=== PATIENT | female | born 1965 | race Caucasian/White ===

== ENCOUNTER → 2017-06-28 | Outpatient (CLI) | payer BC ==
[~2017-06-28] MED LIST: ASCA500 PO; ASTNS; BIOTCAP2; CALC12502 PO; CEFU500T16 PO; CHOLTAB3 PO; CLAR500T3 PO; CLARITHROMYCIN PO; CREON PO; FLNIN NAE; GLUC10007 PO; IMMUNE GLOBULIN; MUCINEX PO; MULTTAB58 PO; PRLSR20 PO; VITA100C4 PO; [UNRECOGNIZED DRUG - OTHER]; [UNRECOGNIZED DRUG - OTHER]; tumeric PO; vitamin B complex PO
== END | disposition home or self-care (01) ==
LOC: C.PAPS 14:09
PROVIDERS: ATTEND Obstetrics & Gynecology
DX: Z01.411 Encounter for gynecological examination (general) (routine) with abnormal findings (principal)

== ENCOUNTER → 2017-09-30 | Outpatient (CLI) | payer BC ==
[~2017-09-30] MED LIST changes: +CEFD300C2 PO; -CEFU500T16 PO; -CLAR500T3 PO; +CLAR500T38 PO; -CLARITHROMYCIN PO; -CREON PO; +HYDR-3126 PO; +HYDR25CA PO; +LORA-741 PO; +PRED20TA PO; +PSEU60TA80 PO
--- NOTE | 2017-09-30 08:32 | DIAGNOSTIC IMAGING REPORT ---
CT OF THE CHEST WITHOUT IV CONTRAST CLINICAL HISTORY: Chronic cough. History of breast cancer. COMPARISON STUDY: No previous studies for comparison. CT DOSE: 177.05 mGycm TECHNIQUE: Axial images of the chest were obtained without IV contrast. Images were reviewed in the axial, sagittal, and coronal planes. IV contrast was not administered for this examination. A dose lowering technique was utilized adhering to the principles of ALARA. FINDINGS: The patient is status post left mastectomy with placement of a breast implant. No enlarged axillary, mediastinal or hilar lymph nodes are present. There are postoperative within the left axilla. The size of the heart is normal. There is no pericardial effusion. There is no pneumothorax or pleural effusion. Note is made of moderate left lower lobe volume loss with groundglass opacity. Extensive bronchial wall thickening within the left lower lobe is noted with multifocal secretions throughout the bronchi possible mucoid impaction. Otherwise, the airways are patent. No suspicious osseous lesions are present. 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 Upper abdomen is unremarkable on this unenhanced exam. IMPRESSION: 1. Moderate left lower lobe volume loss with left lower lobe bronchial wall thickening, intraluminal secretions and possible mucoid impaction. These findings are age indeterminate but likely subacute to chronic and favor an infectious or inflammatory etiology. No central obstructing mass. 2. No evidence of metastatic disease within the chest. 3. Status post left mastectomy. 4. 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 Electronically signed by: Yfn Wilson M.D. 09/30/2017 8:31 AM Dictated Date/Time: 09/30/2017 8:16 AM
== END | disposition home or self-care (01) ==
LOC: C.CTS 07:45
PROVIDERS: ATTEND Physician Assistant
DX: R05 Cough (principal); R91.8 Other nonspecific abnormal finding of lung field; Z90.12 Acquired absence of left breast and nipple; M41.24 Other idiopathic scoliosis, thoracic region

== ENCOUNTER 2017-10-12 08:42 | Day surgery (SDC) | payer OTHER ==
--- NOTE | 2017-10-11 19:03 | History and Physical ---
History & Physical Date of Service Oct 11, 2017. 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 Current Occupation: teacher - [employer], denies occupation/industrial exposures Patient denies any h/o childhood asthma or allergies. She reports in general, her pulmonary history is unremarkable with exception of "pleurisy" in high school and pneumonia in graduates school. She states while in her mid-30s following the of her first son, she was diagnosed with immune deficiency. She follows with Dr. Jorge and is prescribed IVIG Q monthly. She reports prior h/o allergy testing was negative. She reports recurrent acute sinus infections and sinus symptoms. She reports prior h/o use of an antimicrobial sinus wash which was successful but unfortunately, no longer available. Her sinus infections/symptoms have been difficult to treat suppress and she has been referred to/seen by [facility]. Her sinus rinse was adjusted without significant improvement. She was offered sinus surgery but she declined. Patient reported that she has been "sick since January". She reports significant sinus pressure and drainage. Cough is described as harsh, wet, and "throaty". She reports intermittent wheeze. 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 She is currently prescribed Biaxin 500mg BID x 1-month. She reports intermittent bursts of prednisone without improvement. Trial of anti -reflux medication x 2-months did not offer any relief. Cough is not affected by temperature changes or PO intake. She denies change with supine position however does reports that she must sleep in a reclined position. Previously, she has been prescribed a trial of ProAir x 8-months for intermittent cough without palliation. More recently, she has been prescribed Flovent 110 2 puffs BID and is unsure if this has been palliative. She denies any fevers or chills. Denied any GI symptoms or associated dyspnea. Patient is originally from [place] and has lived in [place] with her , 2-sons , and dog for the past 10-years. She denies any mold.mildew in her home. She denies recent travel. ETOH: few drinks/week. She denies any family history of lung disease/lung CA. PFT 05/10/17: FVC: 3.05, FEV1: 2.65/108%, FEV1/FVC: 87%/109%, FEF 25-75%: 3.33/135 % Active Problems 1. Breast cancer 2. Diverticulitis of colon 3. Encounter for gynecological examination with abnormal finding 4. Genetic susceptibility to malignant neoplasm of breast 5. Genetic susceptibility to malignant neoplasm of ovary 6. Hypogammaglobulinemia 7. Menopausal symptoms Surgical History 1. History of Breast Surgery Mastectomy 2. History of Breast Surgery Reconstruction 3. History of Section Low Transverse 4. History of Oral Surgery Tooth Extraction 5. History of Partial Colectomy 6. History of Salpingo-oophorectomy Bilateral 7. History of Tubal Ligation Family History 1. Family history of Breast Cancer 2. Family history of Breast Cancer Social History Never smoker Current Meds 1. Astelin SOLN 2. Biaxin 500 MG TABS; TAKE 1 TABLET EVERY 12 HOURS DAILY 3. Bioflex TABS 4. Biotin CAPS 5. Calcium Plus Vitamin D CAPS 6. Flonase SUSP 7. Multi Vitamin/Minerals TABS 8. Turmeric Curcumin CAPS 9. Vitamin B Complex TABS 10. Vitamin C TABS 11. Vitamin E CAPS Allergies 1. Avelox TABS 2. Factive TABS 3. Penicillins 4. Septra TABS Vital Signs Blood Pressure: 118 / 74, RUE, Sitting Height: 5 ft 0.5 in Weight: 129 lb 2 oz BMI Calculated: 24.8 BSA Calculated: 1.56 O2 Saturation: 99, RA Respiration: 17 Temperature: 98.5 F Heart Rate: 85 Physical Exam Constitutional: Well developed, well nourished female. No acute distress. Head: + facial symmetry Eyes: EOMi, PERRLA, no conjunctival injection Neck: Trachea midline. No adenopathy or masses Respiratory: Non-labored respirations. Loose cough on exam. Bilateral coarse rales. No wheeze. No clubbing or cyanosis. Cardiovascular: RRR, no MRG. +2 radial pulses. <1s capillary refill. Abdomen: soft, active bowel sounds Integumentary: no rashes, or ecchymosis MSK/Extremities: Moving and developed symmetrically. No peripheral edema. No calf tenderness. Neurologic: A&O, data recall in-tact. Appropriate affect.
[~2017-10-12] VITALS: Ht 154.9 cm; Wt 57.8 kg
[~2017-10-12 08:42] MED LIST changes: -CEFD300C2 PO; -HYDR-3126 PO; -HYDR25CA PO; -LORA-741 PO; -PSEU60TA80 PO
[2017-10-12 08:57] VITALS: Ht 154.9 cm; Wt 57.8 kg
--- NOTE | 2017-10-12 09:44 | History & Physical Bridge Note ---
H&P Re-Evaluation Bridge Note: I have examined the patient, reviewed the History & Physical and in the interval since the performance of the History & Physical I have noted the following changes of clinical significance: No changes noted
--- NOTE | 2017-10-12 09:45 | Pre Sedation Assessment ---
Pre Sedation Assessment General Date of Sedation: Oct 12, 2017. Review Cardiovascular: regular rate, rhythm, no edema, no gallop, no JVD, no murmur, normal peripheral pulses Lungs: chest non-tender, lungs clear, + decreased breath sounds (LLL) Pre-Sedation Airway Assessment Smoking Status: Never Smoker Hx of Sleep Apnea: No Hx of difficult intubation: No Short Thick Neck: No Thyro-mental Distance: > 3 Finger Breadths Oral Cavity: Capped Teeth, WNL Mallampati Classification: Class II ASA Classification: Class II NPO Status Date of Last Intake of Fluids: Oct 11, 2017 Time of Last Intake of Fluids: 2329 Date of Last Intake of Solids: Oct 11, 2017 Time of Last Intake of Solids: 2329 Procedure Planning Contraindications for Sedation: None Current Medications Reviewed: Yes Notes The planned sedation has been discussed with the patient. Informed Consent was obtained. I have identified the patient, determined the appropriateness of sedation and have assessed the patient immediately prior to the procedure. All medicine(s) and interventions are by my order.
[2017-10-12] MEDS ORDERED: HYDR-3126 PO (09:52)
[2017-10-12] MEDS ORDERED: HYDR25CA PO (09:52)
[2017-10-12] MEDS ORDERED: LORA-741 PO (09:52)
[2017-10-12] MEDS ORDERED: PSEU60TA80 PO (09:52)
[2017-10-12] MEDS ORDERED: LIDOCAINE 4% INH SOLN 4 ML BTL NEB ONE (10:00)
[2017-10-12] MEDS ORDERED: LIDOCAINE VISCOUS 2% 100ML TOP ONE (10:12)
[2017-10-12] MEDS ORDERED: LIDOCAINE HCL 2% LOCAL 50ML VIAL INSTIL ONE (10:24)
--- NOTE | 2017-10-12 10:34 | Bronchoscopy Procedure Note ---
Bronchoscopy Procedure Note Procedure: Bronchoscopy, conscious sedation, bronchial lavage left lower lobe Consent: Obtained through the patient placed into the chart Pre-procedural diagnosis: Chronic cough Post-procedural diagnosis: Left lower lobe bronchiectasis Start time: 1014 End time: 1025 Total time: minutes Analgesia: 2% liquid lidocaine: Via nebulizer 4% gel lidocaine: Via right naris 2% liquid lidocaine: Via bronchoscopy Sedation: Versed IV: 3mg Fentanyl IV: 75 g Procedure: The Olympus video bronchoscope was used for this procedure and passed down through the right naris Right naris/posterior naris/posterior oropharynx: Notable erythema and cracking of the posterior oropharyngeal regions with cobblestoning Glottis: Anatomically within normal limits, notable mucous surrounding the epiglottis Vocal cords: Proper abduction and abduction, anatomically within normal limits Subglottis/trachea/Kiah: Anatomically within normal limits Right bronchial tree: Right mainstem bronchus: Anatomically normal but notably long approximately 4.5 cm in length Right upper lobe: Anatomically within normal limits Bronchus intermedius: No bronchus intermedius Right middle lobe: Anatomically within normal limits Right lower lobe: Anatomically within normal limits Findings: Abnormal right upper lobe anatomy Left bronchial tree: Left mainstem bronchus: Anatomically within normal limits Left upper lobe: Anatomically within normal limits Lingula: Anatomically within normal limits Left lower lobe: Anatomically within normal limits, diffuse mucous plugs obstructing the basal pyramid Findings: Mucous plugging of the basal pyramid Bronchial alveolar lavage: Left lower lobe EBL: None Complications: None Follow-up: ASU
--- NOTE | 2017-10-12 10:35 | Post Sedation Assessment ---
Post Sedation Assessment General Date of Sedation Oct 12, 2017. Vital Signs: Vital Signs Past 12 Hours Date Time Temp Pulse Resp B/P (MAP) Pulse Ox O2 Delivery O2 Flow Rate FiO2 10/12/17 10:25 90 20 125/83 100 Mask 8 10/12/17 10:20 75 20 119/72 100 Mask 8 10/12/17 10:15 81 20 110/67 100 Mask 8 10/12/17 10:10 83 20 121/76 100 Mask 8 10/12/17 10:05 79 20 117/77 100 Mask 8 Post Procedure Recovery Score Activity: (2) Moves 4 extremities * Respiration: (2) Deep breath/cough Circulation: (2) +/-20% PreAnes Value Consciousness: (2) Fully Awake Oxygen Saturation: (2) > 92% On Room Air Discharge Sedation Level of Care: Phase I Post Sedation Plan On clinical assessment, the patient appears to have tolerated the sedation without complications. Patient is recovering as anticipated. Patient will continue to be monitored by nursing and may be discharged when sedation discharge criteria are met per below protocol. Upon Completions of procedure and additional 15 minutes continue every 5 minute vital signs and the P.A.R. score; then discharge to a Phase I or Fast Track to Phase II per the following guidelines: * Discharge Patient to appropriate Phase II area if PAR is 8 or greater or return to pre- procedure baseline. The post - procedure orders will be as directed. * If PAR score is less than 8 or not return to pre-procedure baseline then patient will follow Phase I monitoring till PAR is reached for Phase II. The Phase I may be done in procedure room or may call to secure a Phase I area. * If naloxone or flumazenil are used for reversal, hold in Phase I for an additional 60 -120 minutes before discharge to Phase II. Please call the Sedation Physician to re-evaluate and complete post-note for discharge to Phase II area. Do NOT discharge from procedure sedation or Phase 1 until post- sedation evaluation note is complete by procedure /sedation MD Sedation Discharge Instructions to be given to the patient at discharge to home.
--- NOTE | 2017-10-12 10:37 | Discharge Instructions ---
Discharge Instructions Date of Service Oct 12, 2017. Admission Reason for Admission: Chronic Cough Discharge Discharge Diagnosis / Problem: chronic cough with associated left lower lobe bronchiectasis and abnormal a Discharge Goals Goal(s): Diagnostic testing Activity Recommendations Activity Limitations: resume your previous activity . Instructions / Follow-Up Instructions / Follow-Up Follow-up with a [facility] pulmonary division Current Hospital Diet Patient's current hospital diet: Discharge Diet Recommended Diet: Regular Diet Procedures Procedures Performed: Bronchoscopy, bronchial lavage of the left lower lobe and conscious sedation Pending Studies Studies pending at discharge: no Medical Emergencies . Who to Call and When: Medical Emergencies: If at any time you feel your situation is an emergency, please call 911 immediately. . Non-Emergent Contact Non-Emergency issues call your: [employer] . . "Provider Documentation" section prepared by Sabino Koch. . VTE Core Measure Inpt VTE Proph given/why not?: Treatment not indicated
[2017-10-12] MEDS ORDERED: MIDAZOLAM HCL 5 MG/ML 1 ML VIAL IV ONE (10:39)
[2017-10-12] MEDS ORDERED: FENTANYL CITRATE INJ 50 MCG/1 ML 2 ML VIAL IV ONE (10:39)
[2017-10-12 10:40] VITALS: BP 130/76; O2SAT 95
[2017-10-12 11:09] VITALS: BP 111/72; PULSE 71; O2SAT 97
[2017-10-12 11:42] VITALS: BP 108/68; PULSE 72; TEMP 37; O2SAT 98
[2017-10-12 12:10] VITALS: BP 114/71; PULSE 73; O2SAT 97
[2017-10-12 12:40] VITALS: BP 116/78; PULSE 77; O2SAT 96
== END 2017-10-12 13:05 | disposition home or self-care (01) ==
LOC: C.ACU 08:42
PROVIDERS: ATTEND Internal Medicine Critical Care Medicine
DX: J47.9 Bronchiectasis, uncomplicated (principal); Z85.3 Personal history of malignant neoplasm of breast; Z90.10 Acquired absence of unspecified breast and nipple; Z98.51 Tubal ligation status; Z90.722 Acquired absence of ovaries, bilateral; Z90.49 Acquired absence of other specified parts of digestive tract; Z98.818 Other dental procedure status; Z98.890 Other specified postprocedural states; Z88.0 Allergy status to penicillin

== ENCOUNTER → 2017-10-19 | Outpatient (CLI) | payer OTHER ==
[~2017-10-19] MED LIST changes: -CHOLTAB3 PO; -CLAR500T38 PO; +HYDR-3126 PO; +HYDR25CA PO; +LORA-741 PO; -PRED20TA PO; -PRLSR20 PO; +PSEU60TA80 PO; -[UNRECOGNIZED DRUG - OTHER]
[2017-10-19 19:47] LABS: INFLUENZA A PCR Neg for Influ A (NEG); INFLUENZA B PCR Neg for Influ B (NEG)
== END | disposition home or self-care (01) ==
LOC: C.LAB1850 16:32
PROVIDERS: ATTEND Physician Assistant
DX: R50.9 Fever, unspecified (principal)

== ENCOUNTER → 2017-12-16 | Outpatient (CLI) | payer OTHER ==
[~2017-12-16] MED LIST changes: -PSEU60TA80 PO
== END | disposition home or self-care (01) ==
LOC: C.LAB1850 14:01
PROVIDERS: ATTEND Physician Assistant
DX: J14 Pneumonia due to Hemophilus influenzae (principal)

== ENCOUNTER → 2018-01-03 | Outpatient (CLI) | payer OTHER ==
[~2018-01-03] MED LIST changes: +CEFD300C2 PO
--- NOTE | 2018-01-03 16:50 | ECHOCARDIOGRAM REPORT ---
*NOTICE TO RECEIVING [employer] AGENCY This information is strictly Confidential and protected under [place] law. [place] law prohibits you from making any further disclosure of this information unless further disclosure is expressly permitted by the written consent of the person to whom it pertains or is authorized by law. A general authorization for the release of medical or other information is not sufficient for this purpose. Hospital accepts no responsibility if the information is made available to any other person, INCLUDING THE PATIENT. Interpretation Summary * Name: LUIZ VIRAMONTES Study Date: 01/03/2018 12:52 PM BP: 139/74 mmHg * Patient Location: [facility] HR: 72 * : 1965 (M/d/yyyy) Gender: Female Height: 61 in * Age: 53 yrs Ethnicity: CA Weight: 128 lb * Ordering Physician: Sabino Koch * Referring Physician: Sabino Koch * Performed By: Yudelka Martinez RCS * * Reason For Study: Abnormal PFT * BSA: 1.6 m2 * -- Conclusions -- * Left ventricular systolic function is normal. * No regional wall motion abnormalities noted. * Ejection Fraction = 55-60%. * There is mild mitral regurgitation. Procedure Details * A complete two-dimensional transthoracic echocardiogram was performed (2D, M-mode, Doppler and color flow Doppler). Left Ventricle * The left ventricle is normal in size. * There is normal left ventricular wall thickness. * Left ventricular systolic function is normal. * Ejection Fraction = 55-60%. * No regional wall motion abnormalities noted. Right Ventricle * The right ventricle is normal size. * The right ventricular systolic function is normal as assessed by tricuspid annular plane systolic excursion (TAPSE) (normal >1.5 cm). Atria * The left atrial size is normal. * Right atrial size is normal. * No ASD detected; PFO is not assessed. Mitral Valve * The mitral valve anatomy is normal. * There is no mitral valve stenosis. * There is mild mitral regurgitation. Tricuspid Valve * The tricuspid valve anatomy is normal. * There is no tricuspid stenosis. * There is trace tricuspid regurgitation. * Right ventricular systolic pressure is normal. Aortic Valve * The aortic valve is trileaflet. * The aortic valve opens well. * No hemodynamically significant valvular aortic stenosis. * No aortic regurgitation is present. Pulmonic Valve * The pulmonary valve is not well seen, but the Doppler examination is normal without significant regurgitation or stenosis. Great Vessels * The aortic root is normal size. * The pulmonary is not well visualized. Pericardium/Pleural * There is no pericardial effusion. Great Vessels * Normal inferior vena cava size and collapsability with sniff indicates a normal right atrial pressure of 3 mmHg MMode 2D Measurements and Calculations IVSd 0.80 cm IVSs 1.2 cm LVIDd 4.6 cm LVIDs 2.9 cm LVPWd 0.83 cm LVPWs 1.2 cm IVS/LVPW 0.96 FS 36.8 % EDV(Teich) 97.9 ml ESV(Teich) 32.6 ml EF(Teich) 66.7 % EDV(cubed) 98.1 ml ESV(cubed) 24.7 ml EF(cubed) 74.8 % % IVS thick 50.0 % % LVPW thick 44.0 % LV mass(C)d 122.0 grams LV mass(C)dI 78.0 grams/m\S\2 LV mass(C)s 105.2 grams LV mass(C)sI 67.3 grams/m\S\2 SV(Teich) 65.3 ml SI(Teich) 41.8 ml/m\S\2 SV(cubed) 73.3 ml SI(cubed) 46.9 ml/m\S\2 Ao root diam 2.9 cm Ao root area 6.8 cm\S\2 ACS 1.4 cm LA dimension 3.4 cm asc Aorta Diam 2.7 cm LA/Ao 1.1 EDV(MOD-sp4) 62.0 ml ESV(MOD-sp4) 26.0 ml EF(MOD-sp4) 58.1 % EDV(MOD-sp2) 59.0 ml ESV(MOD-sp2) 20.0 ml EF(MOD-sp2) 66.1 % SV(MOD-sp4) 36.0 ml SI(MOD-sp4) 23.0 ml/m\S\2 SV(MOD-sp2) 39.0 ml SI(MOD-sp2) 25.0 ml/m\S\2 Doppler Measurements and Calculations MV E max melania 79.8 cm/sec MV A max melania 92.2 cm/sec MV E/A 0.87 MV P1/2t max melania 85.7 cm/sec MV P1/2t 81.7 msec MVA(P1/2t) 2.7 cm\S\2 MV dec slope 307.1 cm/sec\S\2 MV dec time 0.17 sec Ao V2 max 150.4 cm/sec Ao max PG 9.1 mmHg Ao max PG (full) 4.4 mmHg LV V1 max PG 4.7 mmHg LV V1 max 108.2 cm/sec PA V2 max 75.5 cm/sec PA max PG 2.3 mmHg TR max melania 198.9 cm/sec
== END | disposition home or self-care (01) ==
LOC: C.CPL 12:50
PROVIDERS: ATTEND Internal Medicine Critical Care Medicine
DX: J47.9 Bronchiectasis, uncomplicated (principal); R94.2 Abnormal results of pulmonary function studies

== ENCOUNTER → 2018-04-21 | Outpatient (CLI) | payer OTHER ==
[~2018-04-21] MED LIST changes: -CEFD300C2 PO; -HYDR25CA PO
--- NOTE | 2018-04-21 08:25 | DIAGNOSTIC IMAGING REPORT ---
(CHEST) THORAX WITHOUT CLINICAL HISTORY: 53 years-old Female presenting with BRONCHITIS, chronic cough. TECHNIQUE: Multidetector CT imaging of the chest was performed without the use of intravenous contrast. IV contrast: None. A dose lowering technique was used consistent with the principles of ALARA (as low as reasonably achievable). COMPARISON: 09/30/2017. CT DOSE (mGy.cm): The estimated cumulative dose is 322.73 mGycm. FINDINGS: Territory Account Representative topogram: Unremarkable. On soft tissue windows, normal thyroid. The patient is status post left mastectomy and subpectoral left breast implant. Evidence of left axillary lymph node dissection. No axillary, supraclavicular, or mediastinal lymphadenopathy. Evaluation of the steve limited without intravenous contrast. Normal aorta. Normal heart size. Coronary artery calcification. No pericardial or pleural effusion. Top normal size of the spleen allowing for incomplete visualization. On lung windows, interval decrease in volume loss and consolidative change in the left lower lobe. Evidence of left lower lobe bronchiectasis and bronchial wall thickening. Decreased subsegmental bronchial debris. Minimal subpleural reticulation in the anterior left upper lobe likely post radiation change. No new focal infiltrate or nodule. Central airways patent. On bone windows, normal osseous structures. IMPRESSION: 1. Improved aeration of the left lower lobe and decreased mucus plugging with chronic changes of bronchiectasis. These findings may suggest chronic infection or inflammatory change. 2. No evidence of intrathoracic metastatic disease. 3. Postsurgical changes of left mastectomy and left breast implant. Electronically signed by: Edinson Liao M.D. 04/21/2018 8:24 AM Dictated Date/Time: 04/21/2018 8:09 AM
== END | disposition home or self-care (01) ==
LOC: C.CTS 07:50
PROVIDERS: ATTEND Physician Assistant
DX: J47.9 Bronchiectasis, uncomplicated (principal); D83.9 Common variable immunodeficiency, unspecified